=== PATIENT | male | born 1990 | race African-American/Black ===

== ENCOUNTER 2020-04-20 22:42 | Emergency (ER) | payer SELFPAY ==
--- NOTE | 2020-04-20 23:01 | NUR ---
pt very agitated when md came into room to assess. md asked what medication patient wants refilled and patient stated "i am not in the mood to comply" md and this rn attempted to reason with patient and patient just got up and stated he wanted to leave. pt getting agitated and was leaning in towards this rn and security walked patient off premesis. unable to complete assessment or history due to noncompliance
== END 2020-04-20 23:06 | disposition home or self-care (01) ==
LOC: ED 23:00
DX: F32.9 Major depressive disorder, single episode, unspecified (principal)
CPT/HCPCS: 99283

== ENCOUNTER 2020-04-21 06:04 | Emergency (ER) | payer SELFPAY ==
[~2020-04-21] VITALS: Ht 188 cm; Wt 90.0 kg
--- NOTE | 2020-04-21 06:04 | NUR ---
INITIAL PT CONTACT. PT PRESENTS TO ED VIA EMS C/O BACK PAIN, HIP PAIN AND KNEE PAIN. PT UPSET IN ROOM, "I NEED PAIN MEDS, I'M NOT ANSWERING ANY QUESTIONS, I NEED PAIN MEDS AND THATS ALL. I HAVE FINE VITALS AND YOU DONT NEED TO TOUCH ME UNLESS ITS FOR PAIN MEDS". PT ANGRY WITH ALL STAFF AND UNCOOPERATIVE WITH ANY EXAMINATION OR ASSESSMENTS ATTEMPTED. Addendum: 04/21/20 at 0612 by [facility] INITIAL PT CONTACT. PT PRESENTS TO ED VIA EMS C/O BACK PAIN, HIP PAIN AND KNEE PAIN. PT UPSET IN ROOM, "I NEED PAIN MEDS, I'M NOT ANSWERING ANY QUESTIONS, I NEED PAIN MEDS AND THATS ALL. I HAVE FINE VITALS AND YOU DONT NEED TO TOUCH ME UNLESS ITS FOR PAIN MEDS". PT ANGRY WITH ALL STAFF AND UNCOOPERATIVE WITH ANY EXAMINATION OR ASSESSMENTS ATTEMPTED. PT REFUSES TRIAGE VITALS AND ANSWERING ANY TRIAGE SCREENING QUESTIONS.
--- NOTE | 2020-04-21 06:12 | NUR ---
ERP AT BEDSIDE
[2020-04-21] MEDS ORDERED: KETOROLAC 60 MG/2 ML ONE (06:17)
[2020-04-21 06:23] VITALS: BP 147/99
--- NOTE | 2020-04-21 06:25 | NUR ---
PT LEFT ED PRIOR TO RECEIVING D/C INSTRUCTIONS. VERBALIZED UNDERSTANDING OF D/C INSTRUCTIONS.
[2020-04-21] MEDS ORDERED: KETOROLAC 30 MG/1 ML IM ONE (06:30)
== END 2020-04-21 06:29 | disposition home or self-care (01) ==
LOC: ED 06:18
DX: M25.562 Pain in left knee (principal); M25.561 Pain in right knee; M54.6 Pain in thoracic spine; M54.5 Low back pain
CPT/HCPCS: 96372; 99283; J1885

== ENCOUNTER 2020-04-21 09:42 | Emergency (ER) | payer SELFPAY ==
[~2020-04-21] VITALS: Ht 177.8 cm; Wt 100.4 kg
[2020-04-21 09:50] VITALS: BP 116/80
[2020-04-21] MEDS ORDERED: ACETAMINOPHEN 500 MG TABLET ONE (10:26)
[2020-04-21] MEDS ORDERED: ACETAMINOPHEN 325 MG TABLET PO ONE (10:30)
== END 2020-04-21 10:44 | disposition home or self-care (01) ==
LOC: ED 10:15
DX: S39.012A Strain of muscle, fascia and tendon of lower back, initial encounter (principal); Z76.0 Encounter for issue of repeat prescription; X58.XXXA Exposure to other specified factors, initial encounter; Y93.89 Activity, other specified; Y92.89 Other specified places as the place of occurrence of the external cause; Y99.8 Other external cause status
CPT/HCPCS: 99283

== ENCOUNTER 2020-04-23 02:01 | Emergency (ER) | payer SELFPAY ==
[~2020-04-23] VITALS: Ht 177.8 cm; Wt 83.0 kg
[2020-04-23 02:02] VITALS: BP 134/98
[2020-04-23] MEDS ORDERED: INSULIN HUMULIN 70/30, 3ML PEN SQ-INSULIN ONE (02:30)
[2020-04-23] MEDS ORDERED: metFORMIN 500 MG TABLET PO ONE (02:30)
[2020-04-23] MEDS ORDERED: ASPIRIN 325 MG TABLET PO ONE (02:30)
[2020-04-23] MEDS ORDERED: MONTELUKAST 5 MG TAB.CHEW PO ONE (02:30)
[2020-04-23] MEDS ORDERED: OLANZAPINE ODT 10MG PO ONE (02:30)
[2020-04-23] MEDS ORDERED: OLANZAPINE 10 MG TABLET ONE (02:32)
[2020-04-23] MEDS ORDERED: metFORMIN 500 MG TABLET ONE (02:32)
[2020-04-23] MEDS ORDERED: ASPIRIN 325 MG TABLET ONE (02:32)
--- NOTE | 2020-04-23 02:58 | NUR ---
Patient given discharge instructions and they have confirmed that they understand the instructions. Patient ambulatory with steady gait.
--- NOTE | 2020-04-23 02:59 | NUR ---
PT PROVIDED TAXI VOUCHER PER REQUEST
== END 2020-04-23 03:00 | disposition home or self-care (01) ==
LOC: ED 02:49
DX: E11.65 Type 2 diabetes mellitus with hyperglycemia (principal); F20.0 Paranoid schizophrenia; Z72.9 Problem related to lifestyle, unspecified
CPT/HCPCS: 82962; 99284; J1815

== ENCOUNTER 2020-04-23 19:39 | Emergency (ER) | payer SELFPAY ==
[~2020-04-23] VITALS: Ht 177.8 cm; Wt 89.0 kg
--- NOTE | 2020-04-23 19:45 | NUR ---
PT BIBA. PER EMS PT HAS BEEN OUT OF PSYCH MEDICATIONS & INSULIN FOR A WEEK. PER EMS BS IS 291. PT IS ALSO REPORTING HEARING VOICES AND SI. PER PT HE HAS NO PLAN. PT RESTING IN [facility] AT THIS TIME, BELONGINGS REMOVED AND SAFELY STORED. WILL CONTINUE TO MONITOR.
[2020-04-23] MEDS ORDERED: OLANZAPINE 10 MG TABLET PO ONE (20:30)
[2020-04-23] MEDS ORDERED: PLEASE ENTER HEIGHT AND WEIGHT MC SCH (20:30)
[2020-04-23] MEDS ORDERED: OLANZAPINE 10 MG TABLET ONE (20:40)
[2020-04-23 20:50] LABS: BASOPHILS % (AUTO) 1 % (0-1); EOSINOPHILS % (AUTO) 5 % (1-7); LYMPHOCYTES % (AUTO) 55 % (22-44); MEAN CORPUSCULAR HEMOGLOBIN 29.6 pg (27.5-34.5); MEAN CORPUSCULAR HGB CONC 33.7 g/dL (33.2-36.2); MEAN PLATELET VOLUME 7.6 fL (7.4-10.4); MONOCYTES % (AUTO) 6 % (2-9); NEUTROPHILS % (AUTO) 34 % (42-75); PLATELET COUNT 303 x10^3/uL (130-400); RED BLOOD COUNT 4.97 x10^6/uL (4.38-5.82); RED CELL DISTRIBUTION WIDTH 13.1 % (9.4-14.8)
[2020-04-23 20:52] LABS: ALBUMIN 3.4 g/dL (3.4-5.0); ANION GAP 5 mmol/L (5-15); CALCIUM 8.7 mg/dL (8.5-10.1); CHLORIDE 108 mmol/L (98-107); CREATININE 1.13 mg/dL (0.7-1.3)
[2020-04-23] MEDS ORDERED: INSULIN REGULAR 100 UNITS/ML, 3ML VIAL SQ-INSULIN ONE (21:30)
[2020-04-23 21:42] LABS: MD SCAN
[2020-04-23] MEDS ORDERED: INSULIN SINGLE DOSE, ER ONE ×2 (21:43→21:44)
[2020-04-23 21:57] VITALS: BP 125/68
--- NOTE | 2020-04-23 21:58 | NUR ---
PT RESTING IN GURNEY WITH EYES CLOSED, DIDIN AT THIS TIME, PT MEDICATED PER EMAR, WILL CONTINUE TO MONITOR.
== END 2020-04-23 23:34 | disposition home or self-care (01) ==
LOC: ED 23:31
DX: F20.9 Schizophrenia, unspecified (principal); E11.65 Type 2 diabetes mellitus with hyperglycemia; Z79.899 Other long term (current) drug therapy
CPT/HCPCS: 36415; 80048; 82040; 82962; 85025; 99284; J1815

== ENCOUNTER 2020-04-24 16:58 | Emergency (ER) | payer SELFPAY ==
[~2020-04-24] VITALS: Ht 185.4 cm; Wt 100.3 kg
[2020-04-24 17:01] VITALS: BP 133/81
[2020-04-24] MEDS ORDERED: IBUPROFEN 200 MG TABLET PO ONE (17:30)
== END 2020-04-24 17:29 | disposition left against medical advice (07) ==
LOC: MERGE 16:58 → ED 17:27
DX: S39.012A Strain of muscle, fascia and tendon of lower back, initial encounter (principal); Z72.9 Problem related to lifestyle, unspecified; E11.9 Type 2 diabetes mellitus without complications; X58.XXXA Exposure to other specified factors, initial encounter; Y93.89 Activity, other specified; Y92.89 Other specified places as the place of occurrence of the external cause; Y99.8 Other external cause status
CPT/HCPCS: 99282

== ENCOUNTER 2020-04-27 13:38 | Emergency (ER) | payer SELFPAY ==
[~2020-04-27] VITALS: Ht 177.8 cm; Wt 99.5 kg
[2020-04-27 13:41] VITALS: BP 140/92
--- NOTE | 2020-04-27 14:15 | NUR ---
PROVIDED PT WITH BLANKET AND RV'WD POC WITH PT. THEN WHEN ERP/SCRIBE WENT IN TO SEE PT HE WAS NOT IN ROOM.
== END 2020-04-27 14:30 | disposition left against medical advice (07) ==
LOC: ED 14:15
DX: Z53.21 Procedure and treatment not carried out due to patient leaving prior to being seen by health care provider (principal)

== ENCOUNTER 2020-04-28 16:30 | Emergency (ER) | payer SELFPAY ==
[~2020-04-28] VITALS: Ht 177.8 cm; Wt 100.0 kg
--- NOTE | 2020-04-28 17:25 | NUR ---
Provider at bedside.
--- NOTE | 2020-04-28 17:45 | NUR ---
Provided pt cranberry juice.
--- NOTE | 2020-04-28 17:54 | NUR ---
Pt sleeping, visible from nurses station. Breathing equal, nonlabored.
[2020-04-28 18:05] LABS: ALBUMIN 4.2 g/dL (3.4-5.0); ANION GAP 7 mmol/L (5-15); CALCIUM 9.6 mg/dL (8.5-10.1); CHLORIDE 97 mmol/L (98-107); SALICYLATE LEVEL 2.3 mg/dL (2.8-20.0)
[2020-04-28 18:08] LABS: ALANINE AMINOTRANSFERASE 26 U/L (12-78); ALKALINE PHOSPHATASE 73 U/L (45-117); BILIRUBIN,TOTAL 0.6 mg/dL (0.2-1.0); CREATININE 1.63 mg/dL (0.7-1.3); TOTAL PROTEIN 7.4 g/dL (6.4-8.2)
[2020-04-28 18:14] LABS: BASOPHILS % (AUTO) 1 % (0-1); EOSINOPHILS % (AUTO) 1 % (1-7); LYMPHOCYTES % (AUTO) 22 % (22-44); MEAN CORPUSCULAR HEMOGLOBIN 29.4 pg (27.5-34.5); MEAN CORPUSCULAR HGB CONC 34.3 g/dL (33.2-36.2); MEAN PLATELET VOLUME 7.8 fL (7.4-10.4); MONOCYTES % (AUTO) 10 % (2-9); NEUTROPHILS % (AUTO) 67 % (42-75); PLATELET COUNT 277 x10^3/uL (130-400); RED BLOOD COUNT 5.63 x10^6/uL (4.38-5.82); RED CELL DISTRIBUTION WIDTH 13.2 % (9.4-14.8)
[2020-04-28 18:21] LABS: MD NO
--- NOTE | 2020-04-28 19:12 | NUR ---
Pt sleeping. Visible from nurses station. Breathing equal, unlabored.
[2020-04-28 19:19] VITALS: BP 109/60
--- NOTE | 2020-04-28 19:44 | NUR ---
Provided pt cab voucher
== END 2020-04-28 19:46 | disposition home or self-care (01) ==
LOC: ED 18:15
DX: E86.0 Dehydration (principal); R42 Dizziness and giddiness; R53.1 Weakness; E11.9 Type 2 diabetes mellitus without complications
CPT/HCPCS: 36415; 80053; 80299; 80320; 80329; 85025; 99283; G0480

== ENCOUNTER 2020-05-01 03:05 | Emergency (ER) | payer SELFPAY ==
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
== END 2020-05-01 03:15 | disposition left against medical advice (07) ==
LOC: ED 03:09
DX: Z53.21 Procedure and treatment not carried out due to patient leaving prior to being seen by health care provider (principal)

== ENCOUNTER 2020-05-03 22:34 | Emergency (ER) | payer SELFPAY ==
[~2020-05-03] VITALS: Ht 177.8 cm; Wt 100.0 kg
--- NOTE | 2020-05-03 22:49 | NUR ---
ASSUMED CARE OF PATIENT. PATIENT BIB [facility] FOR SOB. EKG DONE. PT IS 100% RA. PT ALSO REPORTS HE HAS NOT BEEN TAKING HIS MEDICATION FOR HIS DIABETES. VS STABLE. CALL LIGHT IN PLACE. WARM BLANKET GIVEN. WILL CONTINUE TO MONITOR.
[2020-05-03 23:01] LABS: BASOPHILS % (AUTO) 1 % (0-1); EOSINOPHILS % (AUTO) 2 % (1-7); LYMPHOCYTES % (AUTO) 44 % (22-44); MEAN CORPUSCULAR HEMOGLOBIN 29.6 pg (27.5-34.5); MEAN CORPUSCULAR HGB CONC 34.1 g/dL (33.2-36.2); MEAN PLATELET VOLUME 8.3 fL (7.4-10.4); MONOCYTES % (AUTO) 7 % (2-9); NEUTROPHILS % (AUTO) 46 % (42-75); PLATELET COUNT 221 x10^3/uL (130-400); RED BLOOD COUNT 4.92 x10^6/uL (4.38-5.82)
[2020-05-03 23:04] LABS: MD NO
[2020-05-03 23:10] LABS: ALBUMIN 3.5 g/dL (3.4-5.0); ANION GAP 5 mmol/L (5-15); CALCIUM 9.1 mg/dL (8.5-10.1); CHLORIDE 96 mmol/L (98-107); CREATININE 1.26 mg/dL (0.7-1.3)
[2020-05-03 23:13] LABS: TROPONIN I < 0.015 ng/mL (0.000-0.045)
[2020-05-03] MEDS ORDERED: SODIUM CHLORIDE 0.9% 1,000ML IVBOLUS ONE (23:30)
[2020-05-03] MEDS ORDERED: INSULIN REGULAR 100 UNITS/ML, 3ML VIAL IVPush ONE (23:30)
[2020-05-03] MEDS ORDERED: INSULIN SINGLE DOSE, ER ONE (23:43)
[2020-05-04 00:06] VITALS: BP 121/61
--- NOTE | 2020-05-04 00:19 | NUR ---
PT WALKED OUT OF ROOM HOLDING BLANKETS YELLING FOR ANOTHER ONE. PT AGGRESSIVELY THREW BLANKETS ON GURNEY IN [place]. SECURITY CALLED. PT DEMANDED IV REMOVED. "I DON'T WANT SECURITY WATCHING ME." PT REQUESTED FOOD. TURKEY SANDWHICH GIVEN. PT AGREES TO STAY FOR 15 MORE MINS FOR ANOTHER FINGER STICK BEFORE DISCHAGE. DR RG AWARE. VS STABLE. HOGSHEAD COOPER AWRAE. WILL CONTINUE TO MONITOR.
--- NOTE | 2020-05-04 00:39 | NUR ---
FINGER STICK DONE. PT REPORTS HE WANTS TO LEAVE. PT IS A&O X4. PT REFUSED TO STAY FOR DISCHARGE VS. PT GIVEN A TAXI VOUCHER. PT OKAYED FOR DC PER DR RG.
== END 2020-05-04 00:53 | disposition home or self-care (01) ==
LOC: ED 23:48
DX: R06.00 Dyspnea, unspecified (principal); E10.65 Type 1 diabetes mellitus with hyperglycemia; F17.200 Nicotine dependence, unspecified, uncomplicated
CPT/HCPCS: 36415; 71045; 80048; 82040; 82962; 84484; 85025; 93005; 96360; 99285; J1815; J7030

== ENCOUNTER 2020-05-04 21:55 | Emergency (ER) | payer SELFPAY ==
[~2020-05-04] VITALS: Ht 177.8 cm; Wt 84.0 kg
[2020-05-04 21:58] VITALS: BP 146/87
== END 2020-05-04 22:07 | disposition left against medical advice (07) ==
LOC: ED 22:01
DX: M79.10 Myalgia, unspecified site (principal); Z53.21 Procedure and treatment not carried out due to patient leaving prior to being seen by health care provider

== ENCOUNTER 2020-05-24 01:44 | Emergency (ER) | payer SELFPAY ==
[~2020-05-24] VITALS: Ht 177.8 cm; Wt 102.0 kg
[2020-05-24 01:49] VITALS: BP 105/59
--- NOTE | 2020-05-24 01:54 | NUR ---
kvng martinez from [facility] with c/o high blood sugar and out of metformin
--- NOTE | 2020-05-24 01:56 | NUR ---
BS 401 BY SARAH
== END 2020-05-24 02:48 | disposition home or self-care (01) ==
LOC: ED 02:06
DX: E10.65 Type 1 diabetes mellitus with hyperglycemia (principal); Z76.0 Encounter for issue of repeat prescription; F17.200 Nicotine dependence, unspecified, uncomplicated
CPT/HCPCS: 82962; 99283

== ENCOUNTER 2020-05-26 22:05 | Emergency (ER) | payer SELFPAY ==
--- NOTE | 2020-05-26 22:13 | NUR ---
NOT IN LOBBY WHEN CALLED
--- NOTE | 2020-05-26 22:20 | NUR ---
NOT IN LOBBY WHEN CALLED
--- NOTE | 2020-05-26 22:35 | NUR ---
NOT IN LOBBY WHEN CALLED
== END 2020-05-26 22:36 | disposition left against medical advice (07) ==
LOC: ED 22:30
DX: F32.9 Major depressive disorder, single episode, unspecified (principal); Z53.21 Procedure and treatment not carried out due to patient leaving prior to being seen by health care provider

== ENCOUNTER 2020-05-29 06:40 | Emergency (ER) | payer SELFPAY ==
[~2020-05-29] VITALS: Ht 177.8 cm; Wt 94.8 kg
[2020-05-29 06:46] VITALS: BP 140/83
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
[2020-05-29] MEDS ORDERED: OLAN5TAB9 PO (07:04)
[2020-05-29] MEDS ORDERED: INSU100I17 SC (07:04)
[2020-05-29] MEDS ORDERED: MONT10TA6 PO (07:04)
[2020-05-29] MEDS ORDERED: ALBU8.5H8 INH (07:04)
[2020-05-29] MEDS ORDERED: OLANZAPINE 10 MG TABLET ONE (07:06)
--- NOTE | 2020-05-29 07:11 | NUR ---
After pt given med, pt ambulatory out of room. This RN asked pt if he would like to wait for his dc paperwork. Pt declines this. Pt offered bus pass. Pt declines this. Pt stating "Fuck you" to this RN as he walked out. Pt ambulatory out of unit through ambulance bay door with steady gait, fully dressed. Security contacted to ensure pt leaves hospital property safely.
[2020-05-29] MEDS ORDERED: OLANZAPINE 10 MG TABLET PO ONE (07:30)
== END 2020-05-29 07:14 | disposition home or self-care (01) ==
LOC: ED 07:08
DX: E11.9 Type 2 diabetes mellitus without complications (principal); Z76.0 Encounter for issue of repeat prescription; F20.9 Schizophrenia, unspecified; J02.9 Acute pharyngitis, unspecified; M79.10 Myalgia, unspecified site; F17.200 Nicotine dependence, unspecified, uncomplicated
CPT/HCPCS: 99281